=== PATIENT | male | born 1985 | race Caucasian/White ===

== ENCOUNTER → 2017-11-14 | Outpatient (CLI) | payer OTHER ==
[~2017-11-14] MED LIST: ACET325 PO; ALBU90OI INH; ALFU10; AMIT50 PO; AMIT75; BUDE6HFA INH; BUPR100 PO; CAPS28.3TC TOP; CHOICEFUL VITA1 EACH PO; CODACE30 PO; CRUTCH2 XX; DIAZ2 PO; DIVA250EC PO; ERGO400; FLUT220OIA INH; FURO40 PO; GABA300 PO; GABA600 PO; Gabapentin600 MG PO; HYDPAM50 PO; HYDR1TAB94 PO; Imitrex100 MG; MORPHINE SULFAT30 M2 PO; Multiple Vitam1 EAC1; NAPR500 PO; Naprosyn500 MG PO; Norco 10-325 T1 EACH PO; OMEPRAZOLE MAGN20 MG PO; ONDA8 PO; POTCHL20ER PO; PRED20 PO; PROC10 PO; PROM25 PO; Percocet 5-3251 EACH PO; RANI150 PO; SUMA25 PO; Sudogest60 MG PO; TOPI25 PO; TRAM50 PO; Ultram50 MG PO; VITAMIN D350000 UNIT PO; Valium5 MG PO; ZOLP10 PO; Zanaflex2 M1 PO; Zanaflex4 M1 PO; [UNRECOGNIZED DRUG - OTHER] TP
[2017-11-14 13:14] LABS: Protein, Urine Quantitative 6.4 mg/dL (0.0-11.9)
[2017-11-14 13:28] LABS: Microalbumin, Urine Quant. <5.000 mg/L (0.000-20.000)
== END | disposition home or self-care (01) ==
LOC: LAB 11:01 → LAB FUT 10-30 11:30
PROVIDERS: Internal Medicine Nephrology
DX: N18.2 Chronic kidney disease, stage 2 (mild) (principal); D63.1 Anemia in chronic kidney disease; N25.81 Secondary hyperparathyroidism of renal origin; E55.9 Vitamin D deficiency, unspecified; E78.00 Pure hypercholesterolemia, unspecified; R76.9 Abnormal immunological finding in serum, unspecified; R94.5 Abnormal results of liver function studies
CPT/HCPCS: 81050; 82043; 84156

== ENCOUNTER 2019-08-27 06:34 | Day surgery (SDC) | payer OTHER ==
[~2019-08-27] VITALS: Ht 177.8 cm; Wt 99.2 kg
[~2019-08-27 06:34] MED LIST changes: +ACID REDUCER20 MG PO; +ALFU10 PO; +HYDPAM100 PO; +Hydrocodone-Ap1 EA20 PO; +Imitrex100 MG PO; +NAPR500ERA PO; +Neurontin 300300 MG PO; +POTA10T PO; +PRAHYD1AE; +SPIR25 PO; +Symbicort 16010.2 GM INH; +TIZANIDINE HCL4 MG PO; +VITAMIN D32000 UNIT PO; +VITAMIN D5000 UNI1 PO
== END 2019-08-27 08:55 | disposition home or self-care (01) ==
LOC: ORSCSDS 06:34
PROVIDERS: Internal Medicine Gastroenterology
PROC: 0DB58ZX Excision of Esophagus, Via Natural or Artificial Opening Endoscopic, Diagnostic (ICD-10-PCS; principal; 2019-08-27 08:15)
DX: K21.0 Gastro-esophageal reflux disease with esophagitis (principal); R13.10 Dysphagia, unspecified; B37.81 Candidal esophagitis; I10 Essential (primary) hypertension; Z79.899 Other long term (current) drug therapy
CPT/HCPCS: 88305; 88312; J2250; J2405; J2704; J7120

== ENCOUNTER → 2019-10-21 | Outpatient (CLI) | payer OTHER ==
[2019-10-21 20:05] LABS: Creatinine Urine 54.5 mg/dL (27.00-270.00)
[2019-10-21 21:22] LABS: Calcium, Urine 9.8 mg/dL (< 17.5); Calcium, Urine Calculation 254.8 mg/24hrs (42.0-353.0)
== END ==
LOC: LAB 11:00 → LAB SHORT 11:00 → LAB FUT 10-01 07:55
PROVIDERS: Internal Medicine Endocrinology, Diabetes & Metabolism
DX: M85.80 Other specified disorders of bone density and structure, unspecified site (principal)
CPT/HCPCS: 81050; 82340; 82570

== ENCOUNTER → 2021-04-26 | Outpatient (CLI) | payer OTHER ==
[~2021-04-26] MED LIST changes: +Flovent Diskus50 MCG INH; +MIRALAX17 GM PO; +OXYC10TA19 PO
== END | disposition home or self-care (01) ==
LOC: LAB SHORT 11:43 → LAB 11:43
DX: R39.15 Urgency of urination (principal)
CPT/HCPCS: 87086

== ENCOUNTER 2021-07-04 10:52 | Day surgery (SDC) | payer OTHER ==
[~2021-07-04] VITALS: Ht 177.8 cm; Wt 126.8 kg
[~2021-07-04 10:52] MED LIST changes: +OMEP20ER PO; +TIZA4 PO
--- NOTE | 2021-07-04 12:13 | NUR ---
07/04/21 1213 Ambika Diaz FIRST ATTEMPT MISSED BY RN IN THE RIGHT FOREARM. SECOND ATTEMPT MISSED IN THE FOREARM BY RN. THIRD ATTEMPT SUCCESFUL IN THE LEFT HAND.
== END 2021-07-04 13:45 | disposition home or self-care (01) ==
LOC: ORSCSDS 10:52
PROVIDERS: Internal Medicine Gastroenterology
PROC: 0DB58ZX Excision of Esophagus, Via Natural or Artificial Opening Endoscopic, Diagnostic (ICD-10-PCS; principal; 2021-07-04 13:00)
DX: Z01.818 Encounter for other preprocedural examination (principal); R13.10 Dysphagia, unspecified; F41.9 Anxiety disorder, unspecified; I10 Essential (primary) hypertension; J45.909 Unspecified asthma, uncomplicated; Z79.899 Other long term (current) drug therapy
CPT/HCPCS: 88305; J2704; J7120

== ENCOUNTER → 2021-09-24 | Outpatient (CLI) | payer OTHER | END | disposition home or self-care (01) | LOC: LAB SHORT 14:02 → LAB 14:02 | DX: K21.9 Gastro-esophageal reflux disease without esophagitis (principal) | CPT/HCPCS: 87338 ==

== ENCOUNTER → 2021-10-24 | Outpatient (CLI) | payer OTHER ==
[2021-10-24 11:37] LABS: Alanine Aminotransfer (ALT/SGP 57 U/L (12-78); Albumin, Blood 3.5 g/dL (3.4-5.0); Albumin/Globulin Ratio 1.2 (0.8-1.8); Alk Phos 57 U/L (50-136); Anion Gap 9 mmol/L (6-16); Aspartate Aminotrans (AST/SGOT 33 U/L (12-37); Bilirubin, Total 0.6 mg/dL (0.1-1.0); Blood Urea Nitrogen 19 mg/dL (8-24); Bun/Creatinine Ratio 14.8 (12.0-20.0); CO2, Blood 24 mmol/L (21-32); Chloride, Blood 103 mmol/L (98-108); Creatinine, Blood 1.28 mg/dL (0.60-1.20); Glomerular Filtration Rate >60 (60-); Glucose, Blood 88 mg/dL (70-99); Phosphorus, Blood 3.5 mg/dL (2.5-4.9); Potassium, Blood 3.5 mmol/L (3.5-5.5); Sodium, Blood 136 mmol/L (136-145); Total Protein, Blood 6.5 g/dL (6.4-8.2)
== END | disposition home or self-care (01) ==
LOC: LAB SHORT 08:56 → LAB 08:56
PROVIDERS: Internal Medicine Hematology & Oncology
DX: M81.0 Age-related osteoporosis without current pathological fracture (principal)
CPT/HCPCS: 80053; 84100

== ENCOUNTER 2022-02-11 11:18 | Day surgery (SDC) | payer OTHER ==
[~2022-02-11] VITALS: Ht 175.3 cm; Wt 114.9 kg
[2022-02-11] MEDS ORDERED: Vistaril50 MG PO (12:07)
[2022-02-11] MEDS ORDERED: TOPI100 PO (12:07)
--- NOTE | 2022-02-11 13:18 | NUR ---
02/11/22 1318 Ivelisse Valenzuela 0.15ML OF EPI ADDED TO 30ML OF BUPIVICAINE 0.5% TO CREATE A SOLUTION OF BUPIVICAINE 0.5% WITH EPI 1:200,000.
--- NOTE | 2022-02-11 14:33 | NUR ---
02/11/22 1433 MARY LYONS 1425 REPORT GIVEN TO NANETTE MORGAN AND ZARINA MORGAN FENTANYL HANDED OFF TO ZARINA MORGAN
== END 2022-02-11 14:55 | disposition home or self-care (01) ==
LOC: ORSCSDS 11:18
PROVIDERS: Podiatrist Foot & Ankle Surgery
PROC: 0QSJ04Z Reposition Right Fibula with Internal Fixation Device, Open Approach (ICD-10-PCS; principal; 2022-02-11 12:30)
DX: S82.61XA Displaced fracture of lateral malleolus of right fibula, initial encounter for closed fracture (principal); I10 Essential (primary) hypertension; J45.909 Unspecified asthma, uncomplicated; K21.9 Gastro-esophageal reflux disease without esophagitis; F32.A Depression, unspecified; G35 Multiple sclerosis; E66.01 Morbid (severe) obesity due to excess calories; Z68.36 Body mass index [BMI] 36.0-36.9, adult; R56.9 Unspecified convulsions; Z79.899 Other long term (current) drug therapy; Z79.82 Long term (current) use of aspirin
CPT/HCPCS: A9270; C1713; J0171; J0690; J1100; J1885; J2250; J2405; J2704; J3010; J7120

== ENCOUNTER → 2022-06-06 | Outpatient (CLI) | payer OTHER ==
[~2022-06-06] MED LIST changes: +FLUTICASONE-SA1 EAC1; +NAPR220; +TOPI100 PO; +Vistaril50 MG PO
[2022-06-06 18:05] LABS: Albumin, Blood 3.7 g/dL (3.4-5.0); Albumin/Globulin Ratio 1.2 (0.8-1.8); Bilirubin, Total 0.2 mg/dL (0.1-1.0); Bun/Creatinine Ratio 7.4 (12.0-20.0); Calcium, Blood 9.9 mg/dL (8.5-10.1); Creatinine, Blood 1.21 mg/dL (0.60-1.20); Phosphorus, Blood 4.3 mg/dL (2.5-4.9); Potassium, Blood 5.1 mmol/L (3.5-5.5); Total Protein, Blood 6.7 g/dL (6.4-8.2)
== END ==
LOC: LAB SHORT 12:47 → LAB 12:47
PROVIDERS: Internal Medicine Hematology & Oncology
DX: D50.9 Iron deficiency anemia, unspecified (principal)
CPT/HCPCS: 80053; 82728; 83540; 83550; 84100

== ENCOUNTER 2022-11-06 08:20 | Day surgery (SDC) | payer OTHER ==
[~2022-11-06] VITALS: Ht 177.8 cm; Wt 131.3 kg
== END 2022-11-06 10:16 | disposition home or self-care (01) ==
LOC: ORSCSDS 08:20
PROVIDERS: Internal Medicine Gastroenterology
PROC: 0DJ08ZZ Inspection of Upper Intestinal Tract, Via Natural or Artificial Opening Endoscopic (ICD-10-PCS; principal; 2022-11-06 09:30)
DX: R13.10 Dysphagia, unspecified (principal); K21.00 Gastro-esophageal reflux disease with esophagitis, without bleeding; I10 Essential (primary) hypertension; F41.9 Anxiety disorder, unspecified; J45.909 Unspecified asthma, uncomplicated; F32.A Depression, unspecified; Z79.899 Other long term (current) drug therapy
CPT/HCPCS: J2704; J7120

== ENCOUNTER 2022-11-16 03:18 | Emergency (ER) | payer OTHER ==
[~2022-11-16] VITALS: Ht 172.7 cm; Wt 113.4 kg
[2022-11-16] MEDS ORDERED: NAPR500 PO (04:19)
== END 2022-11-16 04:33 | disposition home or self-care (01) ==
LOC: ER 03:18
DX: S93.401A Sprain of unspecified ligament of right ankle, initial encounter (principal); S96.911A Strain of unspecified muscle and tendon at ankle and foot level, right foot, initial encounter; X58.XXXA Exposure to other specified factors, initial encounter; J45.909 Unspecified asthma, uncomplicated; Z88.8 Allergy status to other drugs, medicaments and biological substances; Z88.5 Allergy status to narcotic agent; Z79.899 Other long term (current) drug therapy
CPT/HCPCS: 73600; 99284-25; A9270

== ENCOUNTER → 2023-01-27 | Outpatient (CLI) | payer OTHER ==
[2023-01-27 11:21] LABS: Albumin, Blood 3.3 g/dL (3.4-5.0); Albumin/Globulin Ratio 1.3 (0.8-1.8); Bilirubin, Total 0.2 mg/dL (0.1-1.0); Bun/Creatinine Ratio 7.4 (12.0-20.0); Calcium, Blood 8.8 mg/dL (8.5-10.1); Creatinine, Blood 1.21 mg/dL (0.60-1.20); Globulin, Blood 2.6 g/dL (2.2-4.0); Phosphorus, Blood 4.4 mg/dL (2.5-4.9); Potassium, Blood 3.5 mmol/L (3.5-5.5); Total Protein, Blood 5.9 g/dL (6.4-8.2)
== END | disposition home or self-care (01) ==
LOC: LAB 10:00 → LAB SHORT 10:00
PROVIDERS: Internal Medicine Hematology & Oncology
DX: D51.8 Other vitamin B12 deficiency anemias (principal); M81.0 Age-related osteoporosis without current pathological fracture
CPT/HCPCS: 80053; 82607; 82746; 84100

== ENCOUNTER 2023-04-29 09:30 | Day surgery (SDC) | payer OTHER ==
[~2023-04-29] VITALS: Ht 177.8 cm; Wt 120.6 kg
[2023-04-29 12:11] VITALS: BP 104/81
== END 2023-04-29 12:11 | disposition home or self-care (01) ==
LOC: ORSCSDS 09:30
PROVIDERS: Internal Medicine Gastroenterology
PROC: 0DB98ZX Excision of Duodenum, Via Natural or Artificial Opening Endoscopic, Diagnostic (ICD-10-PCS; principal; 2023-04-29 11:00)
PROC: 0D758ZZ Dilation of Esophagus, Via Natural or Artificial Opening Endoscopic (ICD-10-PCS; principal; 2023-04-29 11:00)
PROC: 0DB58ZX Excision of Esophagus, Via Natural or Artificial Opening Endoscopic, Diagnostic (ICD-10-PCS; principal; 2023-04-29 11:00)
DX: R13.10 Dysphagia, unspecified (principal); K26.9 Duodenal ulcer, unspecified as acute or chronic, without hemorrhage or perforation; K20.0 Eosinophilic esophagitis
CPT/HCPCS: 88305; J2001; J2250; J2704; J7120

== ENCOUNTER 2024-05-14 13:57 | Day surgery (SDC) | payer OTHER ==
[~2024-05-14] VITALS: Ht 177.8 cm; Wt 123.7 kg
[~2024-05-14 13:57] MED LIST changes: +Avidoxy100 MG PO; +CLIN1TS
[2024-05-14] MEDS ORDERED: LORA10ER PO (14:15)
[2024-05-14] MEDS ORDERED: Phentermine HCl15 MG PO (14:15)
[2024-05-14] MEDS ORDERED: HYDHCL25 PO (14:16)
[2024-05-14] MEDS ORDERED: OXYC10TA19 PO (14:16)
[2024-05-14] MEDS ORDERED: MERIBIN5 MG PO (14:16)
[2024-05-14] MEDS ORDERED: [UNRECOGNIZED DRUG - OTHER] (14:16)
[2024-05-14] MEDS ORDERED: LOPE2C PO (14:17)
[2024-05-14] MEDS ORDERED: PANT20 PO (14:17)
[2024-05-14] MEDS ORDERED: Lactated Ringer's 1,000 ML IV ONE (14:55)
[2024-05-14] MEDS ORDERED: propofoL 50 ML IV ONE (14:57)
[2024-05-14 15:47] VITALS: BP 117/81
== END 2024-05-14 15:38 | disposition home or self-care (01) ==
LOC: ORSCSDS 13:57
PROVIDERS: Internal Medicine Gastroenterology
PROC: 0DJ08ZZ Inspection of Upper Intestinal Tract, Via Natural or Artificial Opening Endoscopic (ICD-10-PCS; principal; 2024-05-14 14:45)
PROC: 0D757ZZ Dilation of Esophagus, Via Natural or Artificial Opening (ICD-10-PCS; principal; 2024-05-14 14:45)
DX: R13.10 Dysphagia, unspecified (principal); Z87.19 Personal history of other diseases of the digestive system; K44.9 Diaphragmatic hernia without obstruction or gangrene; G47.33 Obstructive sleep apnea (adult) (pediatric); K21.9 Gastro-esophageal reflux disease without esophagitis; R56.9 Unspecified convulsions; Z79.899 Other long term (current) drug therapy
CPT/HCPCS: J2704

== ENCOUNTER 2024-08-20 23:41 | Emergency (ER) | payer OTHER ==
[~2024-08-20] VITALS: Ht 177.8 cm; Wt 120.2 kg
[~2024-08-20 23:41] MED LIST changes: +HYDHCL25 PO; +LOPE2C PO; +LORA10ER PO; +MERIBIN5 MG PO; +PANT20 PO; +Phentermine HCl15 MG PO; +[UNRECOGNIZED DRUG - OTHER]
[2024-08-21 00:15] VITALS: BP 172/121
[2024-08-21 00:51] LABS: BASOPHILS ABSOLUTE AUTO 0.03 K/mm3 (0.00-0.23); BASOPHILS PERCENT AUTO 0 % (0-2); EOSINOPHILS ABSOLUTE AUTO 0.04 K/mm3 (0.00-0.68); EOSINOPHILS PERCENT AUTO 0 % (0-6); Hematocrit 44.4 % (37.0-53.0); Hemoglobin 14.9 g/dL (13.5-17.5); IMMATURE GRAN ABSOLUTE AUTO 0.02 K/mm3 (0.00-0.10); IMMATURE GRAN PERCENT AUTO 0 % (0-1); LYMPHOCYTES ABSOLUTE AUTO 1.06 K/mm3 (0.84-5.20); LYMPHOCYTES PERCENT AUTO 11 % (21-46); MONOCYTES ABSOLUTE AUTO 0.45 K/mm3 (0.16-1.47); MONOCYTES PERCENT AUTO 5 % (4-13); Mean Corpuscular HGB Conc 33.6 g/dL (31.5-36.5); Mean Corpuscular Volume 86 fL (80-100); Mean Platelet Volume 9.5 fL (9.1-12.4); NEUTROPHILS ABSOLUTE AUTO 8.13 K/mm3 (1.96-9.15); NEUTROPHILS PERCENT AUTO 84 % (41-73); Platelet Count 280 K/mm3 (150-400); RDW Coefficient Variation 15.6 % (11.7-14.2); RDW Standard Deviation 49.5 fL (35.1-46.3); Red Blood Cell Count 5.14 M/mm3 (4.30-5.90); White Blood Cell Count 9.73 K/mm3 (4.00-11.30)
[2024-08-21 01:13] LABS: Albumin, Blood 3.8 g/dL (3.4-5.0); Bilirubin, Total 0.3 mg/dL (0.1-1.0); Bun/Creatinine Ratio 14.2 (12.0-20.0); Calcium, Blood 9.2 mg/dL (8.5-10.1); Creatinine, Blood 0.77 mg/dL (0.60-1.20); Globulin, Blood 3.8 g/dL (2.2-4.0); Potassium, Blood 4.1 mmol/L (3.5-5.5); Total Protein, Blood 7.6 g/dL (6.4-8.2)
[2024-08-21] MEDS ORDERED: Metoclopramide HCl 5MG / ML 2ML Vial IV ONE ×2 (01:25→04:25)
[2024-08-21] MEDS ORDERED: NS 1,000 ML IV SCH (01:25)
[2024-08-21] MEDS ORDERED: Ketorolac Tromethamine 30mg Vial IV ONE ×2 (01:25→04:30)
[2024-08-21] MEDS ORDERED: Methyl Salicylate/Menth/Camph 57 GM TUBE TOP ONE (04:30)
[2024-08-21] MEDS ORDERED: Methocarbamol 500 MG Tab PO ONE (04:30)
[2024-08-21] MEDS ORDERED: REGLAN1013 PO (05:20)
== END 2024-08-21 05:10 | disposition home or self-care (01) ==
LOC: ER 23:41
PROVIDERS: Student in an Organized Health Care Education/Training Program
DX: S16.1XXA Strain of muscle, fascia and tendon at neck level, initial encounter (principal); G43.909 Migraine, unspecified, not intractable, without status migrainosus; W19.XXXA Unspecified fall, initial encounter; Z88.5 Allergy status to narcotic agent; Z88.8 Allergy status to other drugs, medicaments and biological substances; Z79.899 Other long term (current) drug therapy; G40.909 Epilepsy, unspecified, not intractable, without status epilepticus; J45.909 Unspecified asthma, uncomplicated; K21.9 Gastro-esophageal reflux disease without esophagitis
CPT/HCPCS: 80053; 85025; 96374; 96375; 99283-25; A9270; J1885; J2765; J7030

== ENCOUNTER 2025-04-11 06:55 | Inpatient (IN) | payer OTHER ==
[2025-04-11] VITALS (16 sets, daily range): BP systolic 96–154; BP diastolic 68–97
[~2025-04-11] VITALS: Ht 177.8 cm; Wt 120.2 kg
[~2025-04-11 06:55] MED LIST changes: +POTA10T; -POTA10T PO; +REGLAN1013 PO
[2025-04-11] MEDS ORDERED: FentaNYL Citrate 50 MCG/ML 2 ML Injection IV ONE ×3 (07:25→09:25)
[2025-04-11] MEDS ORDERED: Morphine Sulfate 4 MG/1 ML Injection IV ONE ×2 (07:25→08:20)
[2025-04-11 07:30] LABS: BASOPHILS ABSOLUTE AUTO 0.04 K/mm3 (0.00-0.23); BASOPHILS PERCENT AUTO 0 % (0-2); EOSINOPHILS ABSOLUTE AUTO 0.04 K/mm3 (0.00-0.68); EOSINOPHILS PERCENT AUTO 0 % (0-6); Hematocrit 41.4 % (37.0-53.0); Hemoglobin 13.6 g/dL (13.5-17.5); IMMATURE GRAN ABSOLUTE AUTO 0.04 K/mm3 (0.00-0.10); IMMATURE GRAN PERCENT AUTO 0 % (0-1); LYMPHOCYTES ABSOLUTE AUTO 2.33 K/mm3 (0.84-5.20); LYMPHOCYTES PERCENT AUTO 25 % (21-46); MONOCYTES ABSOLUTE AUTO 0.68 K/mm3 (0.16-1.47); MONOCYTES PERCENT AUTO 7 % (4-13); Mean Corpuscular HGB Conc 32.9 g/dL (31.5-36.5); Mean Corpuscular Volume 90 fL (80-100); NEUTROPHILS ABSOLUTE AUTO 6.09 K/mm3 (1.96-9.15); NEUTROPHILS PERCENT AUTO 66 % (41-73); NRBC ABSOLUTE 0.00 K/mm3 (0.00-0.02); NRBC Auto 0.0 /100 WBC (0.0-0.2); Platelet Count 258 K/mm3 (150-400); RDW Coefficient Variation 15.4 % (11.7-14.2); RDW Standard Deviation 50.6 fL (35.1-46.3)
[2025-04-11] MEDS ORDERED: CeFAZolin Sodium 2,000 MG in NS 100 ML IV ONE (07:30)
[2025-04-11 07:43] LABS: Alanine Aminotransfer (ALT/SGP 21.0 U/L (12-78); Albumin, Blood 3.1 g/dL (3.4-5.0); Albumin/Globulin Ratio 1.0 (0.8-1.8); Anion Gap 8.0 mmol/L (3-11); Aspartate Aminotrans (AST/SGOT 17.0 U/L (12-37); Bilirubin, Total 0.1 mg/dL (0.1-1.0); Blood Urea Nitrogen 9.0 mg/dL (8-24); CO2, Blood 23.0 mmol/L (21-32); Calcium, Blood 7.8 mg/dL (8.5-10.1); Chloride, Blood 113.0 mmol/L (98-108); Creatinine, Blood 0.9 mg/dL (0.60-1.20); Globulin, Blood 3.0 g/dL (2.2-4.0); Glucose, Blood 112.0 mg/dL (70-99); Potassium, Blood 4.5 mmol/L (3.5-5.5); Sodium, Blood 139.0 mmol/L (136-145); Total Protein, Blood 6.1 g/dL (6.4-8.2)
[2025-04-11] MEDS ORDERED: NS 500 ML IV SCH (08:30)
[2025-04-11] MEDS ORDERED: HYDROmorphone HCl/Pf 1MG SYR IV ONE (09:10)
[2025-04-11] MEDS ORDERED: Ketorolac Tromethamine 30mg Vial IV ONE (10:05)
[2025-04-11] MEDS ORDERED: HYDROmorphone HCl/Pf 1MG SYR IV PRN (11:15)
[2025-04-11] MEDS ORDERED: Rocuronium Bromide 10 MG/ML 5ML Injection IV ONE (12:55)
[2025-04-11] MEDS ORDERED: Midazolam HCl 1MG / ML 2ML Vial ONE (12:57)
[2025-04-11] MEDS ORDERED: FentaNYL Citrate 50 MCG/ML 2 ML Injection ONE ×2 (12:58→15:55)
[2025-04-11] MEDS ORDERED: Ondansetron HCl 2 MG / ML 2ML Vial ONE ×2 (13:06→15:56)
[2025-04-11] MEDS ORDERED: Dexamethasone Sod Phos 10 MG/ML 1ML VIAL ONE (13:06)
[2025-04-11] MEDS ORDERED: Phenylephrine HCl 100 MCG/ML-NS 10MLSYR (1MG/10ML) ONE (13:14)
[2025-04-11] MEDS ORDERED: CeFAZolin Sodium 1000 mg Vial ONE (13:30)
[2025-04-11] MEDS ORDERED: Bupivacaine 0.25% Epi 1:200000 30 ML Vial ONE (13:55)
[2025-04-11] MEDS ORDERED: Bupivacaine 0.5% W/EPI 1:200000 SDV 30 ML Vial ONE (13:58)
[2025-04-11] MEDS ORDERED: HYDROmorphone HCl/Pf 1MG SYR ONE ×2 (14:01→15:55)
[2025-04-11] MEDS ORDERED: Sugammadex Sodium 200 MG/2ML SDV (100 MG/ML) ONE (15:25)
--- NOTE | 2025-04-11 15:47 | NUR ---
04/11/25 1547 Venkata,Aixa INCORRECT SURGICAL COUNT. X-RAY CONDUCTED AND READ BY RADIOLOGIST . NO RETAINED ITEMS NOTED.
[2025-04-11] MEDS ORDERED: CeFAZolin Sodium 2,000 MG in NS 100 ML IV SCH (16:00)
[2025-04-11] MEDS ORDERED: Magnesium Hydroxide Conc 10 ML UDC PO PRN (16:35)
[2025-04-11] MEDS ORDERED: Tranexamic Acid 100 ML IV SCH (16:45)
--- NOTE | 2025-04-11 17:36 | NUR ---
ASSUMED CARE FROM PACU FOR ADMIT POST LEFT TIBULA OPEN FX REPAIR WITH JESUS ALBERTO. SPLINTED ON ARRIVAL. CAP REFILL OF LEFT TOE DIGITS <3. MEDICATED FOR PAIN WITH PO OXYCODONE PER EMAR. SNACKS AND PO FLUID PROVIDED AND TOLERATING WELL. WILL CONTINUE TO MONITOR AND TREAT UNTIL REPORT TO NOC SHIFT RN.
[2025-04-11] MEDS ORDERED: Ketorolac Tromethamine 15mg Vial IV SCH (18:00)
--- NOTE | 2025-04-11 22:51 | NUR ---
UPON ENTERINT PT ROOM, PT VISUALIZED AMB IND c FWW. PT NOT MAINTAINING 50% WB STATUS TO LLE. PT EDUCATED ON PROPER AMBULATION TECHNIQUE & REQUIREMENTS FOR POST-OP AMB c STAFF PRESENT. BED ALARM PLACED FOR PT STAFETY. PT UNHOOKED OWN IV FLUIDS, ALLOWING THEM TO CONTINUE INFUSING ONTO THE FLOOR. PT REFUSES ADDITIONAL/NEW IV FLUIDS. PT EDUCATED ON STAFF-ONLY USE OF PARTICULAR MEDICAL EQUIPTMENT R/T PT SAFETY. PT REMOVED TELEMETRY STICKERS, PT REFUSES TELEMETRY MONITORING. CINDY WRAP TO LLQ c SANG DRAINAGE NOTED AT TOP OF DRESSING, APPROX THE AREA BELOW THE KNEE. DRAINAGE APPROX 1CM TALL & 4CM WIDE.
[2025-04-12 05:23] VITALS: BP 136/90
--- NOTE | 2025-04-12 05:51 | NUR ---
SHIFT SUMMARY POD 1 L TIB FX REPAIR. NO ACUTE CHANGES OVERNIGHT. VSS. TOELRATING ORALS, DENIES N/V. VOIDING. LLE c SPLINT/CINDY WRAP. CINDY WRAP c MIN SANG DRAINAGE AT TOP OF DRESSING, NEAR KNEE. PT MEDICATED PER EMAR FOR PAIN. LLE ELEVATED ON PILLOWS. PT REQUIRES FREQUENT DIRECTION c 50% WB STATUS WHEN AMBULATING c FWW & GB. ANTICIPATED TO WORK c PHYSCIAL THERAPY TODAY. CALL LIGHT IN REACH, BED ALARM IN USE, WILL REPORT TO DAY RN.
[2025-04-12 07:28] VITALS: BP 131/94
[2025-04-12] MEDS ORDERED: CALCIUM 500 MG1 EAC2 PO (10:45)
[2025-04-12] MEDS ORDERED: ONDA8 PO (10:47)
[2025-04-12] MEDS ORDERED: Hydroxyzine HCl50 MG PO (10:48)
[2025-04-12 10:55] LABS: BASOPHILS ABSOLUTE AUTO 0.02 K/mm3 (0.00-0.23); BASOPHILS PERCENT AUTO 0 % (0-2); EOSINOPHILS ABSOLUTE AUTO 0.01 K/mm3 (0.00-0.68); EOSINOPHILS PERCENT AUTO 0 % (0-6); Hematocrit 35.7 % (37.0-53.0); Hemoglobin 12.0 g/dL (13.5-17.5); IMMATURE GRAN ABSOLUTE AUTO 0.04 K/mm3 (0.00-0.10); IMMATURE GRAN PERCENT AUTO 0 % (0-1); LYMPHOCYTES ABSOLUTE AUTO 2.28 K/mm3 (0.84-5.20); LYMPHOCYTES PERCENT AUTO 21 % (21-46); MONOCYTES ABSOLUTE AUTO 1.00 K/mm3 (0.16-1.47); MONOCYTES PERCENT AUTO 9 % (4-13); Mean Corpuscular HGB Conc 33.6 g/dL (31.5-36.5); Mean Corpuscular Volume 90 fL (80-100); NEUTROPHILS ABSOLUTE AUTO 7.41 K/mm3 (1.96-9.15); NEUTROPHILS PERCENT AUTO 69 % (41-73); NRBC ABSOLUTE 0.00 K/mm3 (0.00-0.02); NRBC Auto 0.0 /100 WBC (0.0-0.2); Platelet Count 218 K/mm3 (150-400); RDW Coefficient Variation 15.5 % (11.7-14.2); RDW Standard Deviation 50.9 fL (35.1-46.3)
[2025-04-12 11:54] LABS: Anion Gap 10.0 mmol/L (3-11); Blood Urea Nitrogen 11.0 mg/dL (8-24); CO2, Blood 24.0 mmol/L (21-32); Calcium, Blood 8.1 mg/dL (8.5-10.1); Chloride, Blood 111.0 mmol/L (98-108); Creatinine, Blood 0.72 mg/dL (0.60-1.20); Glucose, Blood 124.0 mg/dL (70-99); Potassium, Blood 3.6 mmol/L (3.5-5.5); Sodium, Blood 141.0 mmol/L (136-145)
--- NOTE | 2025-04-12 12:03 | NUR ---
AMA PT WAS AWAITING D/C ORDERS. BOTH HOSPITALIST AND SURGEON WERE CONTACTED THIS MORNING REGARDING THE PT REQUEST TO D/C. BOTH WERE AGREEABLE. WAS AWAITING ORDERS WHEN PT WAS FOUND AMBULATING HALLWAY. WHEN ASKED WHERE THE PATIENT WAS HEADING HE STATED "I AM GOING HOME". PT WAS AGREEABLE TO SITTING IN WC WHILE IV WAS REMOVED AND DECLINED STAYING UNTIL ORDERS WERE GIVEN. PT VERABLIZED UNDERSTANDING THAT HE WOULD BE D/C W/OUT A SCRIPT FOR PAIN MEDICATION NOR D/C INSTRUCTIONS. PT WAS EDUCATED ON THE IMPORTANCE OF FOLLOWING WEIGHT BEARING PRECAUTIONS AND FOLLOWING UP WITH SURGEON. PT ESCORTED OUT VIA WC.
--- NOTE | 2025-04-12 12:28 | NUR ---
NOTIFIED HOSPITALIST CALLED HOSPITALIST TO NOTIFY OF PT LEAVING AMA.
--- NOTE | 2025-04-12 12:56 | NUR ---
SUMMARY RECIEVED REPORT FROM COUNTER CLERK RN, WAS REPORTED THAT PT WAS VERY ANXIOUS TO DC. UPON INTRODUCTION PT ASKED MULTIPLE TIMES WHEN HE WOULD BE ABLE TO LEAVE. EDUCATED PT ON THE IMPORTANCE OF WORKING W/ PHYSICAL THERAPY PRIOR TO DC. PHYSICAL THERAPY APPROVED DC. AFTER WORKING WITH PHYSICAL THERAPY PATIENT CONTINUED TO ASK ABOUT DC. VSS. SPLINT DRESSING CHANGED ON LLE C/D/I. SEE AMA NOTE.
== END 2025-04-12 12:05 | disposition left against medical advice (07) | DRG 494 ==
LOC: ER 06:55 → SURS 06:56
PROVIDERS: Orthopaedic Surgery; Student in an Organized Health Care Education/Training Program; ADMIT Internal Medicine
PROC: 0QSH34Z Reposition Left Tibia with Internal Fixation Device, Percutaneous Approach (ICD-10-PCS; principal; 2025-04-11 13:00)
DX: S82.252B Displaced comminuted fracture of shaft of left tibia, initial encounter for open fracture type I or II (principal); S82.452B Displaced comminuted fracture of shaft of left fibula, initial encounter for open fracture type I or II; S82.832B Other fracture of upper and lower end of left fibula, initial encounter for open fracture type I or II; G40.909 Epilepsy, unspecified, not intractable, without status epilepticus; K21.9 Gastro-esophageal reflux disease without esophagitis; M54.50 Low back pain, unspecified; G89.29 Other chronic pain; M81.0 Age-related osteoporosis without current pathological fracture; Z53.29 Procedure and treatment not carried out because of patient's decision for other reasons; G35 Multiple sclerosis; G43.909 Migraine, unspecified, not intractable, without status migrainosus; J45.909 Unspecified asthma, uncomplicated; Z79.899 Other long term (current) drug therapy; Z79.891 Long term (current) use of opiate analgesic; Z90.89 Acquired absence of other organs; Z88.8 Allergy status to other drugs, medicaments and biological substances; Z88.5 Allergy status to narcotic agent; Z98.890 Other specified postprocedural states; W18.30XA Fall on same level, unspecified, initial encounter
CPT/HCPCS: 27825; 36415; 71045; 73590; 73610; 80048; 80053; 83880; 84484; 85025; 90471; 90715; 93005; 93010; 96365-59; 96375-59; 96376-59; 97110; 97116; 97162; 99285-25; A9270; G0378; J0690; J1100; J1171; J1885; J2250; J2270; J2371; J2405; J2704; J3010; J7030; J7120